=== PATIENT | female | born 1945 | race American Indian/Alaskan Native ===

== ENCOUNTER 2016-07-28 11:33 | Day surgery (SDC) | payer MEDICARE ==
[~2016-07-28 11:33] MED LIST: IOPIDINE OS ONE; MYDRIACYL 1% OS ONE; NEOFRIN OS ONE
[2016-07-28] MEDS ORDERED: NEOFRIN OS ONE (12:11)
[2016-07-28] MEDS ORDERED: IOPIDINE OS ONE (12:11)
[2016-07-28] MEDS ORDERED: MYDRIACYL 1% OS ONE (12:11)
[2016-07-28 12:38] VITALS: BP 130/76
== END 2016-07-28 11:34 | disposition home or self-care (01) ==
LOC: OR 11:33
PROVIDERS: ATTEND Specialist
DX: H26.492 Other secondary cataract, left eye (principal); J44.9 Chronic obstructive pulmonary disease, unspecified; Z87.891 Personal history of nicotine dependence; Z90.710 Acquired absence of both cervix and uterus; Z98.890 Other specified postprocedural states

== ENCOUNTER 2016-08-18 09:26 | Day surgery (SDC) | payer MEDICARE ==
[~2016-08-18 09:26] MED LIST changes: +IOPIDINE OD ONE; -IOPIDINE OS ONE; +MYDRIACYL 1% OD ONE; -MYDRIACYL 1% OS ONE; +NEOFRIN OD ONE; -NEOFRIN OS ONE
[2016-08-18] MEDS ORDERED: MYDRIACYL 1% OD ONE (09:50)
[2016-08-18] MEDS ORDERED: IOPIDINE OD ONE ×2 (09:50→10:32)
[2016-08-18] MEDS ORDERED: NEOFRIN OD ONE (09:50)
[2016-08-18 10:08] VITALS: BP 110/70
== END 2016-08-18 10:34 | disposition home or self-care (01) ==
LOC: OR 09:26
PROVIDERS: ATTEND Specialist
DX: H26.491 Other secondary cataract, right eye (principal); F17.210 Nicotine dependence, cigarettes, uncomplicated

== ENCOUNTER 2017-10-28 20:58 | Observation (INO) | payer MEDICARE ==
[2017-10-28 21:54] LABS: Basophils # (Auto) 0.1 K/mm3 (0.0-0.1); Basophils % (Auto) 1.1 % (0.0-1.8); Eosinophils # (Auto) 0.4 K/mm3 (0.0-0.4); Eosinophils % (Auto) 4.9 % (0.0-4.3); Hematocrit 41.3 % (30.3-42.9); Hemoglobin 13.5 gm/dl (10.1-14.3); Lymphocytes # (Auto) 2.3 K/mm3 (1.2-5.4); Lymphocytes % (Auto) 29.9 % (13.4-35.0); Mean Corpuscular HGB Conc 33 % (30-34); Mean Corpuscular Hemoglobin 30 pg (28-32); Mean Corpuscular Volume 91 fl (79-97); Monocytes # (Auto) 0.8 K/mm3 (0.0-0.8); Monocytes % (Auto) 10.6 % (0.0-7.3); Platelet Count 285 K/mm3 (140-440); Red Blood Count 4.53 M/mm3 (3.65-5.03)
--- NOTE | 2017-10-28 22:00 | XRay Report ---
FINAL REPORT EXAM: XR CHEST 1V AP HISTORY: Shortness of breath COMPARISON: October 03, 2017. FINDINGS: Frontal view(s) of the chest obtained. Cardiac silhouette within normal limits. Mild hyperinflation lungs with probable emphysema. No gross consolidation or effusion. No pneumothorax. IMPRESSION: No grossly acute findings. Probable emphysema.
[2017-10-28 22:11] LABS: BUN/Creatinine Ratio 15; Blood Urea Nitrogen 12 mg/dL (7-17); Calcium 9.3 mg/dL (8.4-10.2); Hemolysis Index 10
[2017-10-28] MEDS ORDERED: ATROVENT IH ONE (22:12)
[2017-10-28] MEDS ORDERED: PROVENTIL IH ONE (22:12)
[2017-10-28] MEDS ORDERED: NITRO-BID 2% TP ONE (22:40)
--- NOTE | 2017-10-28 22:42 | Emergency Department Report ---
ED Shortness of Breath HPI - General Chief Complaint: Dyspnea/Respdistress Stated Complaint: SOB Time Seen by Provider: 10/28/17 21:48 Source: patient, EMS, old records reviewed Mode of arrival: Ambulatory Limitations: No Limitations - History of Present Illness Initial Comments: 72-year-old female with a past medical history ST elevation AR last month resulting in PCI of the proximal RCA with stent placement 10/02/2017 presented to the hospital complaining of shortness of breath since this morning. Dyspnea worse with exertion. Patient denies chest pain. Patient states she was started on Plavix Monday by her doctors affiliated with [email or web address]. She is also her metoprolol which she plans to refill later this week. Patient denies any wheezing. Positive dry cough reported. Patient still smokes cigarettes. She does not use home oxygen. Patient also complains of pink discoloration when wiping after a bowel movement. - Related Data Home Medications Medication Instructions Recorded Confirmed Last Taken ALBUTEROL Inhaler [ProAir HFA 2 puff IH QID PRN 07/20/16 10/02/17 Unknown Inhaler] ALBUTEROL NEB's [Proventil 0.083% 2.5 mg IH TID PRN 07/20/16 10/02/17 2 Days Ago NEBS] ~09/30/17 Fluticasone/Salmeterol [Advair 1 puff IH BID 07/20/16 10/02/17 1 Day Ago Diskus 500-50 mcg] ~10/01/17 Previous Rx's Medication Instructions Recorded Last Taken Type Aspirin EC [Aspirin Enteric Coated 325 mg PO QDAY tablet 10/04/17 Unknown Rx TAB] AtorvaSTATin [Lipitor] 80 mg PO QHS #30 tablet 10/04/17 Unknown Rx Clopidogrel [Plavix] 75 mg PO QDAY #30 tablet 10/04/17 Unknown Rx Lisinopril [Zestril TAB] 10 mg PO QDAY #30 tablet 10/04/17 Unknown Rx Metoprolol [Lopressor TAB] 25 mg PO BID #60 tablet 10/04/17 Unknown Rx Allergies Allergy/AdvReac Type Severity Reaction Status Date / Time egg Allergy Unknown Verified 10/02/17 08:42 Penicillins Allergy Hives Verified 07/20/16 14:50 ED Review of Systems ROS: Stated complaint: SOB Other details as noted in HPI Comment: All other systems reviewed and negative ED Past Medical Hx - Past Medical History Previous Medical History?: Yes Hx Hypertension: Yes Hx Heart Attack/AMI: Yes Hx COPD: Yes - Surgical History Past Surgical History?: Yes Hx Coronary Stent: Yes (proximal RCA stent 10/02/17) Additional Surgical History: Stents - Social History Smoking Status: Current Every Day Smoker Substance Use Type: None - Medications Home Medications: Home Medications Medication Instructions Recorded Confirmed Last Taken Type ALBUTEROL Inhaler [ProAir HFA 2 puff IH QID PRN 07/20/16 10/02/17 Unknown History Inhaler] ALBUTEROL NEB's [Proventil 0.083% 2.5 mg IH TID PRN 07/20/16 10/02/17 2 Days Ago History NEBS] ~09/30/17 Fluticasone/Salmeterol [Advair 1 puff IH BID 07/20/16 10/02/17 1 Day Ago History Diskus 500-50 mcg] ~10/01/17 Aspirin EC [Aspirin Enteric Coated 325 mg PO QDAY tablet 10/04/17 Unknown Rx TAB] AtorvaSTATin [Lipitor] 80 mg PO QHS #30 tablet 10/04/17 Unknown Rx Clopidogrel [Plavix] 75 mg PO QDAY #30 tablet 10/04/17 Unknown Rx Lisinopril [Zestril TAB] 10 mg PO QDAY #30 tablet 10/04/17 Unknown Rx Metoprolol [Lopressor TAB] 25 mg PO BID #60 tablet 10/04/17 Unknown Rx ED Physical Exam - General Limitations: No Limitations - Other Other exam information: General: No limitations, patient is alert in no acute distress Head exam: Atraumatic, normocephalic Eyes exam: Normal appearance ENT: Moist mucous membrane, normal oropharynx Neck exam: Normal inspection, full range of motion, no meningismus nontender Respiratory exam: Diminished breath sounds bilaterally without wheezing rales or crackles Cardiovascular: Normal rate and rhythm, normal heart sounds Abdomen: Soft, nondistended, and nontender, with normal bowel sounds, no rebound, or guarding Rectal: Guaiac positive brown stool without gross blood or melena Extremity: Full range of motion normal inspection no deformity, tenderness or edema Back: Normal Inspection, full range of motion, no tenderness Neurologic: Alert, oriented x3, cranial nerves intact, no motor or sensory deficit Psychiatric: normal affect, normal mood Skin: Warm, dry, intact ED Course Vital Signs 10/28/17 10/28/17 10/28/17 21:08 21:21 21:30 Temperature 97.3 F L Pulse Rate 77 82 Pulse Rate [ Anterior Bilateral Throughout] Respiratory 15 18 Rate Respiratory Rate [Anterior Bilateral Throughout] Blood Pressure 153/86 153/86 166/100 O2 Sat by Pulse 100 Oximetry 10/28/17 10/28/17 10/28/17 22:00 22:32 22:40 Temperature Pulse Rate 73 Pulse Rate [ 71 Anterior Bilateral Throughout] Respiratory 18 16 Rate Respiratory 13 Rate [Anterior Bilateral Throughout] Blood Pressure 202/100 O2 Sat by Pulse 100 Oximetry 10/28/17 10/28/17 22:50 23:09 Temperature Pulse Rate 80 Pulse Rate [ 68 Anterior Bilateral Throughout] Respiratory Rate Respiratory 12 Rate [Anterior Bilateral Throughout] Blood Pressure 188/102 O2 Sat by Pulse Oximetry - Consultations Consultation #1: 10/28/17 22:50 Case discussed with sas developer Dr. Mcpherson. Recommend to restart beta blockers, Plavix,asa, and agrees with Nitropaste ED Medical Decision Making - Lab Data Result diagrams: 10/28/17 21:34 10/28/17 21:34 Lab Results 10/28/17 10/28/17 10/28/17 Range/Units 21:34 21:34 21:50 WBC 7.7 (4.5-11.0) K/mm3 RBC 4.53 (3.65-5.03) M/mm3 Hgb 13.5 (10.1-14.3) gm/dl Hct 41.3 (30.3-42.9) % MCV 91 (79-97) fl MCH 30 (28-32) pg MCHC 33 (30-34) % RDW 14.0 (13.2-15.2) % Plt Count 285 (140-440) K/mm3 Lymph % (Auto) 29.9 (13.4-35.0) % [place] % (Auto) 10.6 H (0.0-7.3) % Eos % (Auto) 4.9 H (0.0-4.3) % Baso % (Auto) 1.1 (0.0-1.8) % Lymph # 2.3 (1.2-5.4) K/mm3 [place] # 0.8 (0.0-0.8) K/mm3 Eos # 0.4 (0.0-0.4) K/mm3 Baso # 0.1 (0.0-0.1) K/mm3 Seg Neutrophils % 53.5 (40.0-70.0) % Seg Neutrophils # 4.1 (1.8-7.7) K/mm3 Sodium 139 (137-145) mmol/L Potassium 4.2 (3.6-5.0) mmol/L Chloride 99.4 (98-107) mmol/L Carbon Dioxide 26 (22-30) mmol/L Anion Gap 18 mmol/L BUN 12 (7-17) mg/dL Creatinine 0.8 (0.7-1.2) mg/dL Estimated GFR > 60 ml/min BUN/Creatinine Ratio 15 % Glucose 96 (65-100) mg/dL Calcium 9.3 (8.4-10.2) mg/dL Troponin T < 0.010 (0.00-0.029) ng/mL NT-Pro-B Natriuret Pep 1004 H (0-900) pg/mL - EKG Data -: EKG Interpreted by Me (debora) EKG shows normal: sinus rhythm, axis (qrs 69), QRS complexes (qrs 84), ST-T waves (no stemi/t inv) Rate: normal (70) - EKG Data When compared to previous EKG there are: no significant change (10/04/17) - Radiology Data Radiology results: report reviewed cxr: IMPRESSION: No grossly acute findings. Probable emphysema. - Medical Decision Making Dyspnea Cardiac versus respiratory cause EKG and chest x-ray without acute abnormality Patient treated with Solu-Medrol, albuterol, and Atrovent cards consulted Hypertension Nitro paste hypertension and given recent history of stent/mi and ? med compliance pt will be admitted to the hospital - Differential Diagnosis COPD, angina equivalent, PE, AR Critical Care Time: No Critical care attestation.: If time is entered above; I have spent that time in minutes in the direct care of this critically ill patient, excluding procedure time. ED Disposition Clinical Impression: COPD exacerbation, Dyspnea, H/O heart artery stent, HTN (hypertension), Guaiac + stool Disposition: OP ADMIT IP TO THIS HOSP Is pt being admited?: Yes Condition: Stable Time of Disposition: 22:47 (DR Joshi/hosp)
[2017-10-28] MEDS ORDERED: LOPRESSOR PO ONE (22:43)
[2017-10-29] MEDS ORDERED: PERCOCET 5/325 PO PRN (00:39)
[2017-10-29] MEDS ORDERED: SODIUM CHLORIDE FLUSH SYRINGE 10 ML IV PRN (00:39)
[2017-10-29] MEDS ORDERED: ZOFRAN IV PRN (00:39)
[2017-10-29] MEDS ORDERED: TYLENOL PO PRN (00:39)
[2017-10-29] MEDS ORDERED: APRESOLINE IV PRN (00:49)
--- NOTE | 2017-10-29 01:30 | History and Physical Report ---
History of Present Illness Date of examination: 10/29/17 Date of admission: 10/29/17 00:39 Chief complaint: Difficulty breathing History of present illness: Patient is a 72 year old -English female with history of acute CA with recent PCI to proximal RCA, who presented to the ED on account of 4 days history of worsening shortness of breath with mild exertion. She stated that she noticed the difficulty breathing after she started the new medication, Plavix post her cardiac stent placement. She has positive history of orthopnea. She denies chest pain, leg swelling, PND, cough, fever, chills, headaches, nausea, vomiting, dizziness, syncope or loss of consciousness. Past History Past Medical History: acute CA, COPD, hypertension, PVD Past Surgical History: Other (left cardiac catheterization with stent placement. PVD s/p stent placement) Social history: smoking (of more than 50 years and continues to smoke. She admits to marijuana use but denies alcohol or other illicit drug use) Family history: other (reviewed and noncontributory) Medications and Allergies Allergies Allergy/AdvReac Type Severity Reaction Status Date / Time egg Allergy Unknown Verified 10/02/17 08:42 Penicillins Allergy Hives Verified 07/20/16 14:50 Home Medications Medication Instructions Recorded Confirmed Last Taken Type ALBUTEROL Inhaler [ProAir HFA 2 puff IH QID PRN 07/20/16 10/29/17 Unknown History Inhaler] ALBUTEROL NEB's [Proventil 0.083% 2.5 mg IH TID PRN 07/20/16 10/29/17 2 Days Ago History NEBS] ~09/30/17 Fluticasone/Salmeterol [Advair 1 puff IH BID 07/20/16 10/29/17 1 Day Ago History Diskus 500-50 mcg] ~10/01/17 Aspirin EC [Aspirin Enteric Coated 325 mg PO QDAY tablet 10/04/17 10/29/17 Unknown Rx TAB] AtorvaSTATin [Lipitor] 80 mg PO QHS #30 tablet 10/04/17 10/29/17 Unknown Rx Clopidogrel [Plavix] 75 mg PO QDAY #30 tablet 10/04/17 10/29/17 Unknown Rx Lisinopril [Zestril TAB] 10 mg PO QDAY #30 tablet 04/11/18 05/06/18 Unknown Rx Active Meds: Active Medications Acetaminophen (Tylenol) 650 mg PO Q4H PRN PRN Reason: Pain MILD(1-3)/Fever >100.5/BHAKTA Albuterol/Ipratropium (Duoneb *Not For Prn Use*) 1 ampul IH QIDRT DEONTE Amlodipine Besylate (Norvasc) 10 mg PO DAILY DEONTE Docusate Sodium (Colace) 100 mg PO BID DEONTE Famotidine (Pepcid) 20 mg PO BID DEONTE Hydralazine HCl (Apresoline) 75 mg PO TID DEONTE Hydralazine HCl (Apresoline) 20 mg IV Q6H PRN PRN Reason: Blood Pressure Metoprolol Tartrate (Lopressor) 25 mg PO BID DEONTE Ondansetron HCl (Zofran) 4 mg IV Q8H PRN PRN Reason: Nausea And Vomiting Oxycodone/Acetaminophen (Percocet 5/325) 1 tab PO Q6H PRN PRN Reason: Pain, Moderate (4-6) Sodium Chloride (Sodium Chloride Flush Syringe 10 Ml) 10 ml IV BID DEONTE Sodium Chloride (Sodium Chloride Flush Syringe 10 Ml) 10 ml IV PRN PRN PRN Reason: LINE FLUSH Review of Systems All systems: negative (except as documented in the HPI, all other systems were reviewed and negative.) Exam - Constitutional Vitals: Temp Pulse Resp BP Pulse Ox 97.3 F L 65 13 188/102 94 10/28/17 21:21 10/29/17 00:04 10/29/17 00:04 10/29/17 00:04 10/28/17 23:30 General appearance: Present: no acute distress - EENT Eyes: Present: PERRL, EOM intact ENT: hearing intact, clear oral mucosa - Neck Neck: Present: supple, normal ROM - Respiratory Respiratory effort: normal Respiratory: bilateral: CTA - Cardiovascular Rhythm: regular Heart Sounds: Present: S1 & S2. Absent: rub, click - Extremities Extremities: pulses symmetrical, No edema - Abdominal General gastrointestinal: Present: soft, non-tender, non-distended, normal bowel sounds - Integumentary Integumentary: Present: clear, warm, dry - Musculoskeletal Musculoskeletal: gait normal, strength equal bilaterally - Psychiatric Psychiatric: appropriate mood/affect, intact judgment & insight - Neurologic Neurologic: CNII-XII intact, moves all extremities Results - Labs CBC & Chem 7: 10/28/17 21:34 10/28/17 21:34 Labs: Laboratory Last Values WBC 7.7 K/mm3 (4.5-11.0) 10/28/17 21:34 RBC 4.53 M/mm3 (3.65-5.03) 10/28/17 21:34 Hgb 13.5 gm/dl (10.1-14.3) 10/28/17 21:34 Hct 41.3 % (30.3-42.9) 10/28/17 21:34 MCV 91 fl (79-97) 10/28/17 21:34 MCH 30 pg (28-32) 10/28/17 21:34 MCHC 33 % (30-34) 10/28/17:34 RDW 14.0 % (13.2-15.2) 10/28/17 21:34 Plt Count 285 K/mm3 (140-440) 10/28/17 21:34 Lymph % (Auto) 29.9 % (13.4-35.0) 10/28/17 21:34 [place] % (Auto) 10.6 % (0.0-7.3) H 10/28/17 21:34 Eos % (Auto) 4.9 % (0.0-4.3) H 10/28/17 21:34 Baso % (Auto) 1.1 % (0.0-1.8) 10/28/17 21:34 Lymph # 2.3 K/mm3 (1.2-5.4) 10/28/17 21:34 [place] # 0.8 K/mm3 (0.0-0.8) 10/28/17 21:34 Eos # 0.4 K/mm3 (0.0-0.4) 10/28/17 21:34 Baso # 0.1 K/mm3 (0.0-0.1) 10/28/17 21:34 Seg Neutrophils % 53.5 % (40.0-70.0) 10/28/17 21:34 Seg Neutrophils # 4.1 K/mm3 (1.8-7.7) 10/28/17 21:34 Sodium 139 mmol/L (137-145) 10/28/17 21:34 Potassium 4.2 mmol/L (3.6-5.0) 10/28/17 21:34 Chloride 99.4 mmol/L (98-107) 10/28/17 21:34 Carbon Dioxide 26 mmol/L (22-30) 10/28/17 21:34 Anion Gap 18 mmol/L 10/28/17 21:34 BUN 12 mg/dL (7-17) 10/28/17 21:34 Creatinine 0.8 mg/dL (0.7-1.2) 10/28/17 21:34 Estimated GFR > 60 ml/min 10/28/17 21:34 BUN/Creatinine Ratio 15 % 10/28/17 21:34 Glucose 96 mg/dL (65-100) 10/28/17 21:34 Calcium 9.3 mg/dL (8.4-10.2) 10/28/17 21:34 Troponin T < 0.010 ng/mL (0.00-0.029) 10/28/17 21:34 NT-Pro-B Natriuret Pep 1004 pg/mL (0-900) H 10/28/17 21:50 Assessment and Plan Assessment and plan: Dyspnea on exertion -Probably secondary to new onset CHF -Will order echocardiogram to assess EF and valvular function -Will continue serial troponin and EKG monitoring Hypertensive emergency, likely secondary to medication noncompliance -Patient will be placed on both scheduled and when necessary antihypertensives History of CA/PVD with recent stents placement -Continue home medications were reconciled -Cardiology consulted in the ED. History of Tobacco and marijuana abuse -Patient counseled on cessation Prophylaxis -DVT prophylaxis with SCD 38 minutes spent coordinating care
[2017-10-29] MEDS ORDERED: APRESOLINE ONE (01:38)
[2017-10-29] MEDS ORDERED: NORVASC ONE (01:38)
[2017-10-29] MEDS: APRESOLINE PO SCH ×5 (01:44→21:48)
[2017-10-29] MEDS: NORVASC PO SCH ×2 (01:44→10:51)
[2017-10-29] MEDS: DUONEB *Not for PRN Use IH SCH ×4 (09:15→21:05)
[2017-10-29] MEDS: PEPCID PO SCH ×2 (10:51→21:45)
[2017-10-29] MEDS: COLACE PO SCH ×2 (10:52→21:45)
[2017-10-29] MEDS: LOPRESSOR PO SCH ×2 (10:52→21:45)
[2017-10-29] MEDS: SODIUM CHLORIDE FLUSH SYRINGE 10 ML IV SCH ×2 (10:53→21:50)
--- NOTE | 2017-10-29 12:12 | Progress Note ---
Assessment and Plan Assessment and plan: Patient is a 72 year old -[place] female with history of acute KS with recent PCI to proximal RCA, who presented to the ED on account of 4 days history of worsening shortness of breath with mild exertion. She stated that she noticed the difficulty breathing after she started the new medication, Plavix post her cardiac stent placement. She has positive history of orthopnea. 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 assessment of 60 she ran out. She insists that decision on the Plavix made her become more short of breath and at that time also began to notice some blood in her stool. She initially says she was already beginning to notice blood in her stool. And aspirin which she states she was taken home low-dose aspirin post stent insertion. -Will order echocardiogram to assess EF and valvular function -Will continue serial troponin and EKG monitoring -We'll obtain pulmonary consultation Hypertensive emergency, likely secondary to medication noncompliance -Patient will be placed on both scheduled and when necessary antihypertensives History of KS/PVD with recent stents placement -Continue home medications were reconciled -Cardiology consulted in the ED. Tobacco and marijuana abuse -Patient counseled on cessation Positive occult blood -Monitor H&H. We'll defer to cardiology about Plavix and aspirin in this patients with newly implanted cardiac stent -I have discussed the risk of discontinuation of medication to the patient. She verbalized percent. Prophylaxis -DVT prophylaxis with SCD 30 minutes additional time spent going over patient's medications and regarding counseling 50 minutes. History Interval history: Patient is seen today for: Shortness of breath Seen and examined at bedside; 24hour events reviewed; nursing staff ; no adverse overnight events reported to me; Denies any chest pain, nausea, vomiting , diarrhea. She reports bright red blood per rectum No fever noted blood pressure controlled Hospitalist Physical - Physical exam Narrative exam: VITAL SIGNS: Reviewed. GENERAL: The patient appeared well nourished and normally developed. Vital signs as documented. HEAD: No signs of head trauma. EYES: Pupils are equal. Extraocular motions intact. EARS: Hearing grossly intact. MOUTH: Oropharynx is normal. Except for missing dentition NECK: No adenopathy, no JVD. CHEST: Chest with diminished breath sounds bilaterally. No wheezes, rales, or rhonchi. CARDIAC: Regular rate and rhythm. S1 and S2, without murmurs, gallops, or rubs. VASCULAR: No Edema. Peripheral pulses normal and equal in all extremities. ABDOMEN: Soft, without detectable tenderness. No sign of distention. No rebound or guarding, and no masses palpated. Bowel Sounds normal. MUSCULOSKELETAL: Good range of motion of all major joints. Extremities without clubbing, cyanosis or edema. NEUROLOGIC EXAM: Alert and oriented x 3. No focal sensory or strength deficits. Speech normal. Follows commands. PSYCHIATRIC: Mood normal. SKIN: No rash or lesions. - Constitutional Vitals: Temp Pulse Resp BP Pulse Ox 98.2 F 71 20 124/63 94 10/29/17 05:20 10/29/17 10:48 10/29/17 05:20 10/29/17 10:48 10/29/17 05:20 General appearance: Present: no acute distress Results - Labs CBC & Chem 7: 10/28/17 21:34 10/28/17 21:34 Labs: Laboratory Last Values WBC 7.7 K/mm3 (4.5-11.0) 10/28/17 21:34 RBC 4.53 M/mm3 (3.65-5.03) 10/28/17 21:34 Hgb 13.5 gm/dl (10.1-14.3) 10/28/17 21:34 Hct 41.3 % (30.3-42.9) 10/28/17 21:34 MCV 91 fl (79-97) 10/28/17 21:34 MCH 30 pg (28-32) 10/28/17 21:34 MCHC 33 % (30-34) 10/28/17 21:34 RDW 14.0 % (13.2-15.2) 10/28/17 21:34 Plt Count 285 K/mm3 (140-440) 10/28/17 21:34 Lymph % (Auto) 29.9 % (13.4-35.0) 10/28/17 21:34 [place] % (Auto) 10.6 % (0.0-7.3) H 10/28/17 21:34 Eos % (Auto) 4.9 % (0.0-4.3) H 10/28/17 21:34 Baso % (Auto) 1.1 % (0.0-1.8) 10/28/17 21:34 Lymph # 2.3 K/mm3 (1.2-5.4) 10/28/17 21:34 [place] # 0.8 K/mm3 (0.0-0.8) 10/28/17 21:34 Eos # 0.4 K/mm3 (0.0-0.4) 10/28/17 21:34 Baso # 0.1 K/mm3 (0.0-0.1) 10/28/17 21:34 Seg Neutrophils % 53.5 % (40.0-70.0) 10/28/17 21:34 Seg Neutrophils # 4.1 K/mm3 (1.8-7.7) 10/28/17 21:34 Sodium 139 mmol/L (137-145) 10/28/17 21:34 Potassium 4.2 mmol/L (3.6-5.0) 10/28/17 21:34 Chloride 99.4 mmol/L (98-107) 10/28/17 21:34 Carbon Dioxide 26 mmol/L (22-30) 10/28/17 21:34 Anion Gap 18 mmol/L 10/28/17 21:34 BUN 12 mg/dL (7-17) 10/28/17 21:34 Creatinine 0.8 mg/dL (0.7-1.2) 10/28/17 21:34 Estimated GFR > 60 ml/min 10/28/17 21:34 BUN/Creatinine Ratio 15 % 10/28/17 21:34 Glucose 96 mg/dL (65-100) 10/28/17 21:34 Calcium 9.3 mg/dL (8.4-10.2) 10/28/17 21:34 Troponin T < 0.010 ng/mL (0.00-0.029) 10/29/17 03:04 NT-Pro-B Natriuret Pep 1004 pg/mL (0-900) H 10/28/17 21:50
--- NOTE | 2017-10-29 13:49 | Consultation ---
History of Present Illness Consult date: 10/29/17 Requesting physician: ANGELITA SANDS Reason for consult: COPD History of present illness: PULMONARY/CCM CONSULT NOTE (Full dictation # [id number]) Please see dictated notes for full details Past History Past Medical History: acute [place], COPD, hypertension, PVD Past Surgical History: Other (left cardiac catheterization with stent placement. PVD s/p stent placement) Social history: smoking (of more than 50 years and continues to smoke. She admits to marijuana use but denies alcohol or other illicit drug use) Family history: other (reviewed and noncontributory) Medications and Allergies Allergies Allergy/AdvReac Type Severity Reaction Status Date / Time egg Allergy Unknown Verified 10/02/17 08:42 Penicillins Allergy Hives Verified 07/20/16 14:50 Home Medications Medication Instructions Recorded Confirmed Last Taken Type ALBUTEROL Inhaler [ProAir HFA 2 puff IH QID PRN 07/20/16 10/29/17 Unknown History Inhaler] ALBUTEROL NEB's [Proventil 0.083% 2.5 mg IH TID PRN 07/20/16 10/29/17 2 Days Ago History NEBS] ~09/30/17 Fluticasone/Salmeterol [Advair 1 puff IH BID 07/20/16 10/29/17 1 Day Ago History Diskus 500-50 mcg] ~10/01/17 Aspirin EC [Aspirin Enteric Coated 325 mg PO QDAY tablet 10/04/17 10/29/17 Unknown Rx TAB] AtorvaSTATin [Lipitor] 80 mg PO QHS #30 tablet 10/04/17 10/29/17 Unknown Rx Clopidogrel [Plavix] 75 mg PO QDAY #30 tablet 10/04/17 10/29/17 Unknown Rx Lisinopril [Zestril TAB] 10 mg PO QDAY #30 tablet 10/04/17 10/29/17 Unknown Rx Active Meds: Active Medications Acetaminophen (Tylenol) 650 mg PO Q4H PRN PRN Reason: Pain MILD(1-3)/Fever >100.5/BHAKTA Albuterol/Ipratropium (Duoneb *Not For Prn Use*) 1 ampul IH QIDRT [facility] Last Admin: 10/29/17 09:15 Dose: Not Given Amlodipine Besylate (Norvasc) 10 mg PO DAILY [facility] Last Admin: 10/29/17 10:51 Dose: 10 mg Docusate Sodium (Colace) 100 mg PO BID [facility] Last Admin: 10/29/17 10:52 Dose: 100 mg Famotidine (Pepcid) 20 mg PO BID [facility] Last Admin: 10/29/17 10:51 Dose: 20 mg Hydralazine HCl (Apresoline) 75 mg PO TID [facility] Last Admin: 10/29/17 10:48 Dose: Not Given Hydralazine HCl (Apresoline) 20 mg IV Q6H PRN PRN Reason: Blood Pressure Metoprolol Tartrate (Lopressor) 25 mg PO BID [facility] Last Admin: 10/29/17 10:52 Dose: 25 mg Ondansetron HCl (Zofran) 4 mg IV Q8H PRN PRN Reason: Nausea And Vomiting Oxycodone/Acetaminophen (Percocet 5/325) 1 tab PO Q6H PRN PRN Reason: Pain, Moderate (4-6) Sodium Chloride (Sodium Chloride Flush Syringe 10 Ml) 10 ml IV BID [facility] Last Admin: 10/29/17 10:53 Dose: 10 ml Sodium Chloride (Sodium Chloride Flush Syringe 10 Ml) 10 ml IV PRN PRN PRN Reason: LINE FLUSH Physical Examination Vital signs: Vital Signs BP 153/86 10/28/17 21:08 Results - Laboratory Findings CBC and BMP: 10/30/17 06:49 10/30/17 06:49 Abnormal lab findings: Abnormal Labs 10/28/17 10/28/17 21:34 21:50 [place] % (Auto) 10.6 H Eos % (Auto) 4.9 H NT-Pro-B Natriuret Pep 1004 H
--- NOTE | 2017-10-30 05:55 | Consultation ---
REASON FOR CONSULTATION: Evaluation of shortness of breath. HISTORY OF PRESENT ILLNESS: The patient is a 72-year-old female who presented to the Emergency Room at [facility] on 10/28/2017 with complaints of shortness of breath of many days' duration, maybe a week or more. She is getting worse and she says it started after taking a medication may be Plavix. Also she noticed some red tissue when she went to the bathroom and when she saw the side effects from the Plavix, when she read the side effects, she decided to come to the Emergency Room and have it checked to rule out blood loss. Also, she says her medications were changed recently. She is not sure. Her metoprolol. She ran out a few days ago. She is being followed by Jules. The patient's past medical history is significant for patient presented with ST elevation myocardial infarction on 10/02/2017 with inferior STEMI and underwent intervention of the proximal RCA. The patient's other past medical history included chronic smoking with history of chronic obstructive pulmonary disease being monitored by Dr. Donaldson on a regular basis. She gets short of breath all the time. She has history of essential hypertension. 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 History of peripheral vascular disease in the past. MEDICATIONS: At home included amlodipine 10 mg, Pepcid 20 mg, hydralazine 75 mg t.i.d., metoprolol 25 mg b.i.d. ALLERGIES: EGGS AND PENICILLIN. REVIEW OF SYSTEMS: She is having shortness of breath of few days' duration, a few days to few weeks' duration, not much of chest pain. There is confusion about her medications, apparently she could not refill his metoprolol. Otherwise, denied any orthopnea, PND. She gets short of breath for a long time, being followed by Dr. Antonio. Denied any leg swelling, fever. No unusual headaches. No abdominal pain, no urinary symptoms. PHYSICAL EXAMINATION: GENERAL: The patient appears to be comfortable, in no acute distress, well-developed, well-nourished. HEENT: Conjunctivae pink. Sclerae anicteric. NECK: Supple, no JVD. HEART: Regular, probably S4, no S3, no significant murmurs. LUNGS: Clear. ABDOMEN: Benign. EXTREMITIES: Without edema. LABORATORY DATA: Done. Troponins were found to be normal, less than 0.010 x 2. Hemoglobin is 13.5 g/dL. BUN of 12, creatinine of 0.8. FINAL IMPRESSION: 1. Shortness of breath of a few days' duration. Etiology is not clear. Cardiac enzymes are unremarkable. The patient had a history of inferior wall myocardial infarction 10/01/2017 with placement of a stent. 2. History of hypertension. 3. History of chronic smoking. At this point, considering her vague symptoms and cardiac enzymes being unremarkable. We will continue medical therapy. We will get a functional evaluation with IV Lexiscan thallium in the morning. Agree with present management. Thank you very much, Dr. Collins for kindly letting us participate in your patient's care. JOB# [id number] PJ/PATRICIA
[2017-10-30 07:43] LABS: Hematocrit 38.6 % (30.3-42.9); Hemoglobin 12.6 gm/dl (10.1-14.3); Mean Corpuscular HGB Conc 33 % (30-34); Mean Corpuscular Hemoglobin 29 pg (28-32); Mean Corpuscular Volume 90 fl (79-97); Platelet Count 257 K/mm3 (140-440); Red Blood Count 4.27 M/mm3 (3.65-5.03); Red Cell Distribution Width 14.2 % (13.2-15.2)
[2017-10-30 07:54] LABS: BUN/Creatinine Ratio 19; Blood Urea Nitrogen 17 mg/dL (7-17); Calcium 8.7 mg/dL (8.4-10.2); Hemolysis Index 6
[2017-10-30] MEDS ORDERED: LEXISCAN IV ONE ×2 (10:49)
[2017-10-30] MEDS ORDERED: TYLENOL ONE (11:16)
[2017-10-30] MEDS: DUONEB *Not for PRN Use IH SCH ×2 (11:27→13:54)
--- NOTE | 2017-10-30 12:30 | Progress Note ---
Subjective Date of service: 10/30/17 Principal diagnosis: Shortness of Breath; COPD; Tobacco Use Disorder Interval history: Patient is seen today for: Shortness of Breath; COPD; Tobacco Use Disorder Seen and examined at bedside; 24hour events reviewed; nursing and respiratory care staff consulted; no adverse overnight events reported to me; Objective Vital Signs - 12hr 10/30/17 10/30/17 10/30/17 04:16 10:58 11:04 Temperature 98.3 F Pulse Rate 54 L 54 L 72 Respiratory 18 Rate Blood Pressure 135/71 162/86 170/103 O2 Sat by Pulse 96 Oximetry 10/30/17 10/30/17 10/30/17 11:05 11:06 11:07 Temperature Pulse Rate 80 80 72 Respiratory Rate Blood Pressure 167/83 172/77 163/77 O2 Sat by Pulse Oximetry 10/30/17 11:08 Temperature Pulse Rate 67 Respiratory Rate Blood Pressure 160/71 O2 Sat by Pulse Oximetry CBC and BMP: 10/30/17 06:49 10/30/17 06:49 ABG, PT/INR, D-dimer: PT/INR, D-dimer D-Dimer < 135.00 ng/mlDDU (0-234) 10/29/17 14:55 Abnormal lab findings: Abnormal Labs 10/28/17 10/28/17 10/30/17 21:34 21:50 06:49 WBC 12.2 H Alexander % (Auto) 10.6 H Eos % (Auto) 4.9 H Glucose NT-Pro-B Natriuret Pep 1004 H 10/30/17 06:49 WBC Alexander % (Auto) Eos % (Auto) Glucose 102 H NT-Pro-B Natriuret Pep
[2017-10-30] MEDS: LOPRESSOR PO SCH (12:59)
[2017-10-30] MEDS: PEPCID PO SCH (12:59)
[2017-10-30] MEDS: COLACE PO SCH (12:59)
[2017-10-30] MEDS: APRESOLINE PO SCH ×3 (13:00→13:34)
[2017-10-30] MEDS: NORVASC PO SCH (13:00)
[2017-10-30 13:01] VITALS: BP 174/76
[2017-10-30] MEDS: SODIUM CHLORIDE FLUSH SYRINGE 10 ML IV SCH (13:34)
--- NOTE | 2017-10-30 13:58 | Discharge Summary ---
Providers - Providers Date of Admission: 10/29/17 00:39 Attending physician: ANGELITA SANDS MD 10/28/17 22:43 Consult to Physician [CONS] Urgent Comment: Consulting Provider: DONTAE JOE Physician Instructions: Reason For Exam: sob, recent RCA stent (10/02) 10/29/17 12:10 Consult to Physician [CONS] Routine Comment: Consulting Provider: SUSAN ROSALES Physician Instructions: Reason For Exam: COPD Primary care physician: STAFFING ASSISTANT Hospitalization Condition: Stable Disposition: DC-01 TO HOME OR SELFCARE Time spent for discharge: 35 mins Core Measure Documentation - Palliative Care Palliative Care/ Comfort Measures: Not Applicable Exam - Constitutional Vitals: Temp Pulse Resp BP Pulse Ox 98.3 F 68 18 174/76 96 10/30/17 04:16 10/30/17 13:04 10/30/17 04:16 10/30/17 13:34 10/30/17 04:16 Plan Activity: advance as tolerated, fall precautions Diet: low cholesterol Special Instructions: record daily BP diary, smoking cessation Additional Instructions: follow with primary animal shelter clerk in 1 week. Monitor h /h with upholstery covers inspector Follow up with: TERRA DUBON MD [Staff Physician] - 7 Days PRIMARY MD BRYAN [Primary Care Provider] - 7 Days DANDY LOVE MD [Staff Physician] - 7 Days Prescriptions: ALBUTEROL Inhaler [ProAir HFA Inhaler] 2 puff IH QID PRN #1 inha PRN Reason: Shortness Of Breath amLODIPine [Norvasc] 10 mg PO DAILY #30 tablet hydrALAZINE [Apresoline TAB] 50 mg PO TID #90 tablet Metoprolol [Lopressor TAB] 25 mg PO BID #60 tablet
--- NOTE | 2017-10-30 14:26 | Progress Note ---
Assessment and Plan Assessment: Dyspnea - CXR with NAF, probable emphysema per radiology report CAD s/p STEMI with PCI of RCA 10/01/2017 HTN Tobacco use - cessation encouraged Plan: S/p lexiscan MPI stress test this AM which was negative. Currently stable cardiac status. Recommend resuming home cardiac regimen, including ASA, plavix, lipitor, lopressor, lisinopril. Recommend follow up with Dr. Taylor Quintana within 1-2 weeks of hospital discharge ). The patient has been seen in conjunction with Dr. Paez who agrees with the assessment and plan of care. Subjective Date of service: 10/30/17 Principal diagnosis: Shortness of Breath; COPD; Tobacco Use Disorder Interval history: pt for stress test this am, no current cardiac complaints. Objective Last Vital Signs Temp 98.3 F 10/30/17 04:16 Pulse 68 10/30/17 13:04 Resp 18 10/30/17 04:16 BP 174/76 10/30/17 13:34 Pulse Ox 96 10/30/17 13:57 - Physical Examination General: No Apparent Distress HEENT: Positive: PERRL, Normocephaly, Mucus Membranes Moist Neck: Positive: neck supple, trachea midline Cardiac: Positive: Reg Rate and Rhythm, S1/S2 Lungs: Positive: clear to auscultation Neuro: Positive: Grossly Intact, Cranial Nerve 2-12 Intact Abdomen: Positive: Soft. Negative: Tender Skin: Positive: Clear. Negative: Rash, Wound Musculoskeletal: No Fluid Collection, No Pain, Normal Range of Motion Extremities: Absent: edema - Labs and Meds CBC 10/30/17 Range/Units 06:49 WBC 12.2 H (4.5-11.0) K/mm3 RBC 4.27 (3.65-5.03) M/mm3 Hgb 12.6 (10.1-14.3) gm/dl Hct 38.6 (30.3-42.9) % Plt Count 257 (140-440) K/mm3 Comprehensive Metabolic Panel 10/30/17 Range/Units 06:49 Sodium 143 (137-145) mmol/L Potassium 4.2 (3.6-5.0) mmol/L Chloride 104.9 (98-107) mmol/L Carbon Dioxide 29 (22-30) mmol/L BUN 17 (7-17) mg/dL Creatinine 0.9 (0.7-1.2) mg/dL Glucose 102 H (65-100) mg/dL Calcium 8.7 (8.4-10.2) mg/dL - Imaging and Cardiology EKG: report reviewed, image reviewed Echo: report reviewed (10/02/2017: EF 50-55%, impaired relaxation, trace MR, trace TR. ) Cardiac cath: report reviewed (10/01/2017: STEMI with PCI of RCA, EF 55-60%) - Telemetry EKG Rhythm: Sinus Rhythm
[2017-10-30] MEDS ORDERED: DUONEB *Not for PRN Use IH SCH (20:00)
--- NOTE | 2017-10-31 02:32 | Consultation ---
CONSULTING PHYSICIAN: Jorden Collins MD REASON FOR CONSULTATION: COPD. CHIEF COMPLAINT AND HISTORY OF PRESENT ILLNESS: The patient is a 72-year-old -[place] female with past medical history significant amongst other things for a diagnosis of COPD, but also a recent ST elevation myocardial infarction, just a month ago resulting in a PCI of the proximal RCA and stent placement on 10/02/2017. She came in complaining of shortness of breath. It had been going on for a few hours, it was worse with exertion. She denied any chest pain, but she denied chest pain with her prior ST elevation MN. She had been just recently started on Plavix and she believes her shortness of breath was related to her Plavix. She stated that she started the Plavix. Also, she noticed some bleeding on her wipes whenever she has bowel movements, but denied any harmony bleeding. She was also taking metoprolol. She is not on home oxygen. She does have a 20+ pack year tobacco smoking history and continues to smoke. When she was evaluated in the Emergency Room, she was ultimately admitted for workup of a possible acute coronary syndrome. We are asked to assist with management from a COPD standpoint/possible pulmonary emboli standpoint. When I stop by to see her, she was resting in bed. She was not in any acute distress and in particular denied any chest pain. She was on 3 liters oxygen, and O2 sats were in the mid 90s. She denied any new leg pain or swelling, either unilaterally or bilaterally. Denied any history of venous thromboembolic phenomenon. Denied any hemoptysis. Denied palpitations. She denied any sick contacts. She is on bronchodilators at home and has been using them. This really is as much of the history of presentation as I have. PAST MEDICAL HISTORY: Again, coronary artery disease, hypertension, chronic obstructive lung disease, tobacco use disorder. PAST SURGICAL HISTORY: Status post stenting. MEDICATIONS: She was on at the time I stopped by to see her, were reviewed, pertinent medications include the following: DuoNeb treatments nebulized q. 6 hours q.i.d., Norvasc 10 mg p.o. daily, docusate sodium 100 mg p.o. b.i.d., Pepcid 20 mg p.o. b.i.d., hydralazine 75 mg p.o. t.i.d., Lopressor 25 mg p.o. b.i.d., p.r.n. Percocets. ALLERGIES: EGGS AND PENICILLINS. Nature of this allergy is unknown. DIET: Thin lady. Denies significant weight loss or gain in the preceding few weeks to months. FAMILY AND SOCIAL HISTORY: Lives in the community, 20+ pack year tobacco smoking history. Denies alcohol or illicit drug use or abuse at the time I saw her. REVIEW OF SYSTEMS: No loss of consciousness. No new onset seizures. No new onset focal weakness. No gross hematochezia or melena. She did have the blood stains on her wipes. No gross hematuria or dysuria. She has dyspnea on exertion. Denied any paroxysmal nocturnal dyspnea. Denied any orthopnea. Denied any new rash on her body. Complete 13-system review of systems obtained. Pertinent positives and/or negatives as in body of history above, otherwise they are noncontributory. PHYSICAL EXAMINATION: VITAL SIGNS: At presentation, she was afebrile, temperature 97.3 degrees Fahrenheit, pulse of 77, respiratory rate of 15, blood pressure 153/86, oxygen sats were 100%, inspired oxygen concentration at that time was not recorded. GENERAL: She is a thin, elderly, -[place] female. Normocephalic, atraumatic, talking to me in full sentences, in mild respiratory distress at worst. HEAD, EYES, EARS, NOSE AND THROAT: She is anicteric. No conjunctival erythema. Oropharynx is a Mallampati #2 oropharynx. Grossly, no palpable lymph nodes in the supraclavicular or submandibular lymph node chains and no gross jugular venous distention. LUNGS: Auscultation of both lung shaffer significant for diminished bilateral breath sounds, prolonged expiratory phase. However, clear. HEART: Heart sounds 1 and 2 are heard, regular rate and rhythm at the time of my evaluation. No rubs or murmurs. ABDOMEN: Soft. Bowel sounds are positive, nontender. No palpable hepatosplenomegaly. No rebound. EXTREMITIES: Without overt digital clubbing, cyanosis, or pedal edema. Dorsalis pedis pulses were 2+ bilaterally. NEUROLOGIC: Pupils are equal, round, about 4 mm, reactive to light. Extraocular muscle movements were intact. Cranial nerves 2-12 are intact. She moved all 4 extremities spontaneously. PSYCHIATRIC: Affect was normal as was her mood. SKIN: Without any cellulitis. No decubiti and no rash. LABORATORY DATA: From my review admission, white cell count 7.7, hemoglobin 13.5, hematocrit 41.3, platelet count 285. Serum sodium was 139, potassium 4.2, chloride 99, bicarbonate 26, BUN 12, creatinine 0.8, glucose was 96. BNP 1004. Stool occult was reported as positive. A chest x-ray has been reviewed. I have also reviewed the radiologist's interpretation and essentially I do agree with it. Severe chronic obstructive pulmonary disease with significant hyperinflation, however, no acute changes. ASSESSMENT AND PLAN: 1. Shortness of breath with dyspnea on exertion. 2. Chronic obstructive pulmonary disease with a mild acute exacerbation. 3. History of coronary artery disease. 4. Tobacco use disorder. 5. History of hypertension. 6. History of peripheral vascular disease. With regard to a pulmonary etiology to her symptoms, i.e., she does not seem to be in the throes of a significant disease exacerbation. We will continue current bronchodilators as ordered. I have a low to intermediate clinical probability for possible venous thromboembolic disorder. A D-dimer level will be ordered and depending on the results, if positive, I will go ahead and get a CT angiogram. Otherwise, I think we should concentrate on the acute coronary syndrome workup and go ahead and follow recommendations of the header boss. I have expressed my doubt to her that Plavix is the cause of her shortness of breath and even if she did have some bleeding, it does not appear significantly in terms of her serum hemoglobin level. Tobacco cessation has been strongly counseled. She is appropriately on GI prophylaxis. Flu and pneumonia vaccination will be addressed per protocol. Thank you very much for the consult. We will follow along and make further recommendations as the picture progresses/becomes clearer. JOB# [id number] ELENA/PATRICIA
--- NOTE | 2017-10-31 06:05 | Treadmill Report ---
INDICATIONS FOR PROCEDURE: Shortness of breath. DESCRIPTION OF PROCEDURE: Informed consent was obtained. Vasodilator stress was achieved with the intravenous administration of 0.4 mg of Lexiscan per protocol. Resting nuclear cardiac images were performed 45-60 minutes following the intravenous administration of 10 mCi of technetium-99m Myoview. Stress nuclear cardiac images were subsequently performed 30-45 minutes following the intravenous administration of 28 mCi of technetium-99m Myoview. Imaging was performed in a 180-degree arc from 45 degrees DORMAN to 45 degrees LPO. After data acquisition and reconstruction, the images were processed and reoriented at the workstation. The images were processed into the horizontal long, horizontal short and vertical long axis orientations. A polar color map of the horizontal short axis slices was generated and reviewed. The rotating planar images reviewed in cinematic format on the computer console. The post-stress left ventricular ejection fraction is 67%. Left ventricular segmental wall motion appears normal. Myocardial perfusion imaging demonstrates no significant cavity change between stress and rest. No significant stress induced perfusion defects are seen. Nuclear cardiac imaging demonstrates grossly normal post-stress left ventricular systolic function with no significant evidence for myocardial ischemia or necrosis. JOB# [id number] JADE/PATRICIA
== END 2017-10-30 17:55 | disposition home or self-care (01) ==
LOC: ED 20:58 → INTOOBSV 10-29 00:39 → 4A 10-29 00:39
PROVIDERS: ADMIT Internal Medicine; ATTEND Internal Medicine
DX: R06.00 Dyspnea, unspecified (principal); I16.1 Hypertensive emergency; I10 Essential (primary) hypertension; I25.10 Atherosclerotic heart disease of native coronary artery without angina pectoris; J44.9 Chronic obstructive pulmonary disease, unspecified; F17.210 Nicotine dependence, cigarettes, uncomplicated; F12.10 Cannabis abuse, uncomplicated; I25.2 Old myocardial infarction; Z95.5 Presence of coronary angioplasty implant and graft; Z95.828 Presence of other vascular implants and grafts; Z88.0 Allergy status to penicillin; Z91.012 Allergy to eggs; Z79.51 Long term (current) use of inhaled steroids; Z79.899 Other long term (current) drug therapy; Z79.82 Long term (current) use of aspirin
CPT/HCPCS: 36415; 71045; 78452; 80048; 82271; 83880; 84484; 85025; 85027; 85379; 93005; 93010; 93017; 94640; 96374; 99285; A9502; G0378; J2785; J2930

== ENCOUNTER 2019-02-24 14:36 | Emergency (ER) | payer MEDICARE ==
--- NOTE | 2019-02-24 15:04 | Event Note ---
ED Screening Note Date of service: 02/24/19 Time: 15:00 ED Screening Note: 73 y o female presents with sob and coughing intermitently since monday pmh: copd This initial assessment/diagnostic orders/clinical plan/treatment(s) is/are subject to change based on patients health status, clinical progression and re- assessment by fellow clinical providers in the ED. Further treatment and workup at subsequent clinical providers discretion. Patient/guardian urged not to elope from the ED as their condition may be serious if not clinically assessed and managed. Initial orders include: protocol MAin side Eval
--- NOTE | 2019-02-24 15:11 | Event Note ---
Date: 02/24/19 EKG is reviewed and appreciated. Patient endorses painless shortness of breath, cough, "I think I have a cold." Patient endorses compliance with antiplatelet therapy, states she is not having chest pain, vomiting or diaphoresis. Her EKG does not meet STEMI criteria, although it is abnormal when compared to prior. There are no reciprocal changes. The EKG is transmitted to our correspondence representative on-call, Dr. Lakshmi Bennett, who has reviewed the patient's EKG, and agrees that it does not meet criteria for STEMI lab activation. He is in routine agreement for standard ER workup at this time
[2019-02-24 15:14] VITALS: BP 178/85
--- NOTE | 2019-02-24 15:42 | XRay Report ---
CHEST 2 VIEWS INDICATION / CLINICAL INFORMATION: Dyspnea. COMPARISON: 10/28/2017 FINDINGS: SUPPORT DEVICES: None. HEART / MEDIASTINUM: No significant abnormality. LUNGS / PLEURA: Marked changes of COPD No pneumothorax. ADDITIONAL FINDINGS: No significant additional findings. IMPRESSION: Marked changes of COPD. No acute disease. Signer Name: Kendall Mann MD FACR Signed: 02/24/2019 3:38 PM Workstation Name: [id number]
[2019-02-24] MEDS ORDERED: DUONEB *Not for PRN Use IH ONE (16:12)
[2019-02-24] MEDS ORDERED: DECADRON IM ONE (16:12)
[2019-02-24] MEDS ORDERED: LEVAQUIN PO ONE (16:13)
[2019-02-24 16:21] LABS: Hematocrit 44.4 % (30.3-42.9); Hemoglobin 14.9 gm/dl (10.1-14.3); Mean Corpuscular HGB Conc 34 % (30-34); Mean Corpuscular Volume 89 fl (79-97); Platelet Count 246 K/mm3 (140-440); Red Blood Count 4.98 M/mm3 (3.65-5.03)
[2019-02-24 16:44] LABS: Alanine Aminotransferase 50 units/L (7-56); Albumin 4.6 g/dL (3.9-5); BUN/Creatinine Ratio 15; Blood Urea Nitrogen 12 mg/dL (7-17); Calcium 9.5 mg/dL (8.4-10.2); Hemolysis Index 6
--- NOTE | 2019-02-24 17:23 | Emergency Department Report ---
ED Shortness of Breath HPI - General Chief Complaint: Dyspnea/Respdistress Stated Complaint: TALISHA Time Seen by Provider: 02/24/19 15:00 Source: patient Mode of arrival: Ambulatory Limitations: No Limitations - History of Present Illness Initial Comments: Mrs. Farfan is a very pleasant 73-year-old female with a history of COPD, CAD, AL who presents with shortness of breath for the past 2 days. She has a productive cough with clear sputum. She has multiple sick contacts including neighbor and grandchild. Denies fever. Denies nasal congestion. She uses oxygen at home only as needed. She denies chest pain. Denies abdominal pain. She uses Advair Proventil and loratadine. Normally when she has a COPD flare, her financial aid revise her a shot in his office. She's had only 1-2 ER visits this year for COPD concerns. PCP [facility] Dr. Marisela PALACIOS Complaint: shortness of breath -: Gradual, days(s) (2) Severity: mild Consistency: constant Improves With: nothing Worsens With: coughing Known History Of: COPD Context: recent URI Associated Symptoms: cough, sputum production Treatments Prior to Arrival: bronchodilator - Related Data Home Medications Medication Instructions Recorded Confirmed Last Taken ALBUTEROL NEB's [Proventil 0.083% 2.5 mg IH TID PRN 07/20/16 10/29/17 2 Days Ago NEBS] ~09/30/17 Fluticasone/Salmeterol [Advair 1 puff IH BID 07/20/16 10/29/17 1 Day Ago Diskus 500-50 mcg] ~10/01/17 Previous Rx's Medication Instructions Recorded Last Taken Type Aspirin EC 325 mg PO QDAY tablet 10/04/17 Unknown Rx AtorvaSTATin [Lipitor] 80 mg PO QHS #30 tablet 10/04/17 Unknown Rx Clopidogrel [Plavix] 75 mg PO QDAY #30 tablet 10/04/17 Unknown Rx Lisinopril [Zestril TAB] 10 mg PO QDAY #30 tablet 10/04/17 Unknown Rx ALBUTEROL Inhaler (OR & NICU) 2 puff IH QID PRN #1 inha 10/30/17 Unknown Rx [ProAir HFA Inhaler] Metoprolol [Lopressor TAB] 25 mg PO BID #60 tablet 10/30/17 Unknown Rx amLODIPine [Norvasc] 10 mg PO DAILY #30 tablet 10/30/17 Unknown Rx hydrALAZINE [Apresoline TAB] 50 mg PO TID #90 tablet 10/30/17 Unknown Rx Prednisone [predniSONE 10 mg 10 mg PO .TAPER #1 tab.ds.pk 02/24/19 Unknown Rx (6-Day Pack, 21 Tabs)] levoFLOXacin [Levaquin TAB] 500 mg PO QDAY 7 Days #7 tablet 02/24/19 Unknown Rx Allergies Allergy/AdvReac Type Severity Reaction Status Date / Time egg Allergy Unknown Verified 10/02/17 08:42 Penicillins Allergy Hives Verified 07/20/16 14:50 ED Review of Systems ROS: Stated complaint: TALISHA Other details as noted in HPI Comment: All other systems reviewed and negative Constitutional: malaise. denies: fever Respiratory: cough, shortness of breath Cardiovascular: denies: chest pain Gastrointestinal: denies: abdominal pain ED Past Medical Hx - Past Medical History Previous Medical History?: Yes Hx Hypertension: Yes Hx Heart Attack/AMI: Yes Hx Congestive Heart Failure: No Hx Deep Vein Thrombosis: No Hx Pulmonary Embolism: No Hx Asthma: No Hx COPD: Yes Hx Tuberculosis: No - Surgical History Past Surgical History?: Yes Hx Coronary Stent: No Hx Pacemaker: No Hx Internal Defibrillator: No Additional Surgical History: Stents - Social History Smoking Status: Unknown if ever smoked Substance Use Type: None - Medications Home Medications: Home Medications Medication Instructions Recorded Confirmed Last Taken Type ALBUTEROL NEB's [Proventil 0.083% 2.5 mg IH TID PRN 07/20/16 10/29/17 2 Days Ago History NEBS] ~09/30/17 Fluticasone/Salmeterol [Advair 1 puff IH BID 07/20/16 10/29/17 1 Day Ago History Diskus 500-50 mcg] ~10/01/17 Aspirin EC 325 mg PO QDAY tablet 10/04/17 10/29/17 Unknown Rx AtorvaSTATin [Lipitor] 80 mg PO QHS #30 tablet 10/04/17 10/29/17 Unknown Rx Clopidogrel [Plavix] 75 mg PO QDAY #30 tablet 10/04/17 10/29/17 Unknown Rx Lisinopril [Zestril TAB] 10 mg PO QDAY #30 tablet 10/04/17 10/29/17 Unknown Rx ALBUTEROL Inhaler (OR & NICU) 2 puff IH QID PRN #1 inha 10/30/17 Unknown Rx [ProAir HFA Inhaler] Metoprolol [Lopressor TAB] 25 mg PO BID #60 tablet 10/30/17 Unknown Rx amLODIPine [Norvasc] 10 mg PO DAILY #30 tablet 10/30/17 Unknown Rx hydrALAZINE [Apresoline TAB] 50 mg PO TID #90 tablet 10/30/17 Unknown Rx Prednisone [predniSONE 10 mg 10 mg PO .TAPER #1 tab.ds.pk 02/24/19 Unknown Rx (6-Day Pack, 21 Tabs)] levoFLOXacin [Levaquin TAB] 500 mg PO QDAY 7 Days #7 tablet 02/24/19 Unknown Rx ED Physical Exam - General Limitations: No Limitations General appearance: alert, in no apparent distress, other (speaking full word sentences. Appears comfortable. No observable cough) - Head Head exam: Present: atraumatic, normocephalic - Eye Eye exam: Present: normal appearance - ENT ENT exam: Present: mucous membranes moist - Neck Neck exam: Present: normal inspection - Respiratory Respiratory exam: Present: wheezes, decreased breath sounds, prolonged expiratory. Absent: respiratory distress, rales, rhonchi, accessory muscle use - Cardiovascular Cardiovascular Exam: Present: regular rate, normal rhythm, normal heart sounds. Absent: systolic murmur, diastolic murmur, rubs, gallop - GI/Abdominal GI/Abdominal exam: Present: soft, normal bowel sounds. Absent: distended, tenderness, guarding, rebound - Extremities Exam Extremities exam: Present: normal inspection - Back Exam Back exam: Present: normal inspection - Neurological Exam Neurological exam: Present: alert, oriented X3 - Psychiatric Psychiatric exam: Present: normal affect, normal mood - Skin Skin exam: Present: warm, dry, intact, normal color. Absent: rash ED Course Vital Signs 02/24/19 02/24/19 15:13 17:12 Temperature 97.9 F Pulse Rate 77 Pulse Rate [ 95 H Posterior Bilateral Throughout] Respiratory 20 Rate Respiratory 20 Rate [Posterior Bilateral Throughout] Blood Pressure 178/85 O2 Sat by Pulse 94 Oximetry ED Medical Decision Making - Lab Data Result diagrams: 02/24/19 15:59 02/24/19 15:59 - EKG Data 02/24/19 17:21 EKG obtained 1443 Normal sinus rhythm normal axis normal intervals abnormal ST pattern in V3 V4 I suspect repolarization abnormality with LVH however it is changed from September 2017 - Radiology Data Radiology results: report reviewed Marked changes of COPD without acute process no evidence of pneumothorax or infiltrate - Medical Decision Making Mrs. Farfan presents with productive cough and shortness of breath. I do not suspect acute coronary syndrome or pulmonary embolism. I do not suspect cardiac cause. She improved with DuoNeb and IM steroids. She also received by mouth Levaquin. I have discharged her with a prescription for prednisone and Levaquin. She was follow-up with her financial aid this week. Critical care attestation.: If time is entered above; I have spent that time in minutes in the direct care of this critically ill patient, excluding procedure time. ED Disposition Clinical Impression: COPD with acute exacerbation Disposition: DC-01 TO HOME OR SELFCARE Is pt being admited?: No Does the pt Need Aspirin: No Condition: Stable Instructions: Chronic Obstructive Pulmonary Disease (ED) Prescriptions: levoFLOXacin [Levaquin TAB] 500 mg PO QDAY 7 Days #7 tablet Prednisone [predniSONE 10 mg (6-Day Pack, 21 Tabs)] 10 mg PO .TAPER #1 tab.ds.pk Referrals: DANDY LOVE MD [Staff Physician] - [facility]
[2019-02-24 19:18] LABS: Band Neutrophils # (Manual) 0.1 K/mm3; Basophils % (Manual) 0 % (0.0-1.8); Total Cells Counted 100
[2019-02-24 19:19] LABS: Platelet Estimate Consistent w Auto; RBC Morphology Normal
== END 2019-02-24 17:50 | disposition home or self-care (01) ==
LOC: ED 14:36
DX: J44.1 Chronic obstructive pulmonary disease with (acute) exacerbation (principal); I10 Essential (primary) hypertension; I25.2 Old myocardial infarction; Z79.899 Other long term (current) drug therapy; Z91.012 Allergy to eggs; Z88.0 Allergy status to penicillin
CPT/HCPCS: 36415; 71046; 80053; 82962; 85007; 85025; 93005; 93010; 94640; 96372; 99284; J1100; 94644

== ENCOUNTER 2021-08-04 08:26 | Outpatient (CLI) | payer MEDICARE ==
[2021-08-04 09:27] LABS: ABG Base Excess 4.1 mmol/L (-2.0-3.0); ABG Methemoglobin 0.6 % (0.0-1.5); ABG Oxygen Saturation 96.1 % (95.0-99.0); ABG PCO2 44.5 mm Hg; ABG PH 7.432 pH Units (7.350-7.450); ABG PO2 68.5 mm Hg (80.0-90.0)
[2021-08-04 09:36] LABS: Alanine Aminotransferase 35 units/L (7-56); Albumin 4.5 g/dL (3.9-5); BUN/Creatinine Ratio 13; Blood Urea Nitrogen 13 mg/dL (7-17); Calcium 9.1 mg/dL (8.4-10.2); Hemolysis Index 44; LDL Cholesterol,Direct 58 mg/dL (50-130)
[2021-08-04 09:52] LABS: Basophils % (Auto) 0.6 % (0.0-1.8); Eosinophils # (Auto) 0.2 K/mm3 (0.0-0.4); Eosinophils % (Auto) 2.5 % (0.0-4.3); Hematocrit 39.4 % (30.3-42.9); Hemoglobin 12.7 gm/dl (10.1-14.3); Lymphocytes # (Auto) 1.2 K/mm3 (1.2-5.4); Lymphocytes % (Auto) 20.1 % (13.4-35.0); Mean Corpuscular HGB Conc 32 % (30-34); Mean Corpuscular Volume 91 fl (79-97); Monocytes # (Auto) 0.6 K/mm3 (0.0-0.8); Platelet Count 236 K/mm3 (140-440); Red Blood Count 4.36 M/mm3 (3.65-5.03); Red Cell Distribution Width 14.7 % (13.2-15.2)
[2021-08-04 10:03] LABS: Chol/HDL Ratio 1.52 %; HDL Cholesterol 123 mg/dL (40-59)
--- NOTE | 2021-08-04 10:08 | XRay Report ---
CHEST 2 VIEWS INDICATION: COPD J44.9, I21.9, J30.9, I10. COMPARISON: 02/24/2019 FINDINGS: Support devices: None. Heart: Within normal limits. Lungs/pleura: Severe emphysematous changes are evident. No evidence for acute infiltrate, pleural ef fusion or pneumothorax. Additional findings: None. IMPRESSION: Severe emphysema. No acute process or significant change since 02/24/2019. Signer Name: Lew Briggs Jr, MD Signed: 08/04/2021 10:03 AM Workstation Name: [id number]
== END 2021-08-04 08:27 | disposition home or self-care (01) ==
LOC: CARD 08:26
PROVIDERS: ATTEND Internal Medicine
DX: J43.9 Emphysema, unspecified (principal); I21.9 Acute myocardial infarction, unspecified; I10 Essential (primary) hypertension; J30.9 Allergic rhinitis, unspecified; Z86.16 Personal history of COVID-19
CPT/HCPCS: 36415; 36600; 71046; 80053; 80061; 82728; 82803; 83615; 84436; 84443; 84484; 85025; 85379; 86140